=== PATIENT | female | born 1980 | race African-American/Black ===

== ENCOUNTER 2018-01-07 10:35 | Outpatient (CLI) | payer OTHER ==
--- NOTE | 2018-01-07 11:49 | Non Stress Test Report ---
Non Stress Test Datetime Report Generated by CPN: 01/07/2018 11:49 DEMOGRAPHIC EGA NST: 34.5 INDICATION Indication for Study: Ordered by Provider MONITORING Monitor Explained: Monitor Explained; Test Explained; Patient Verbalized Understanding Time on Monitor: 01/07/2018 10:45 Time off Monitor: 01/07/2018 11:35 NST Duration: 50 NST INTERVENTIONS NST Interventions: PO Hydration; Reposition Patient Physician Notified NST: CTresa, CNM BABY A: [id number] BABY A Movement : Present Contraction Frequency : None FHR Baseline : 140 Accelerations : 15X15 Decelerations : None Variability : Moderate 6-25bpm NST Review: Meets Criteria for Reactive NST NST Review and Verified By : ABI Linares Results: Reactive NST REPORT Report Trigger: Send Report
== END 2018-01-07 11:41 | disposition home or self-care (01) ==
LOC: LC 10:35
PROVIDERS: ATTEND Obstetrics & Gynecology
PROC: 4A1HXCZ Monitoring of Products of Conception, Cardiac Rate, External Approach (ICD-10-PCS; principal; 2018-01-07)
DX: Z34.93 Encounter for supervision of normal pregnancy, unspecified, third trimester (principal)
CPT/HCPCS: 59025

== ENCOUNTER 2018-01-14 16:34 | Outpatient (CLI) | payer OTHER ==
--- NOTE | 2018-01-14 17:13 | Non Stress Test Report ---
Non Stress Test Datetime Report Generated by CPN: 01/14/2018 17:13 DEMOGRAPHIC EGA NST: 35.5 INDICATION Indication for Study: Diabetes Mellitus; Ordered by Provider VITAL SIGNS Temperature - NST: 98.0 Pulse - NST: 96 RESP - NST: 16 NBPSYS NST: 116 NBPDIA NST: 65 MONITORING Monitor Explained: Monitor Explained; Test Explained; Patient Verbalized Understanding Time on Monitor: 01/14/2018 16:43 Time off Monitor: 01/14/2018 17:09 NST Duration: 26 NST INTERVENTIONS NST Interventions: PO Hydration; Reposition Patient Physician Notified NST: Dr. Rutherford on unit and viewed strip BABY A: [id number] BABY A Movement : Present Contraction Frequency : 0 FHR Baseline : 130 Accelerations : 15X15 Decelerations : None Variability : Moderate 6-25bpm NST Review: Meets Criteria for Reactive NST NST Review and Verified By : ABI Eden Results: Reactive NST REPORT Report Trigger: Send Report
== END 2018-01-14 17:14 | disposition home or self-care (01) ==
LOC: LC 16:34
PROVIDERS: ATTEND Obstetrics & Gynecology Gynecology
PROC: 4A1HXCZ Monitoring of Products of Conception, Cardiac Rate, External Approach (ICD-10-PCS; principal; 2018-01-14)
DX: O24.419 Gestational diabetes mellitus in pregnancy, unspecified control (principal); O09.523 Supervision of elderly multigravida, third trimester; Z3A.35 35 weeks gestation of pregnancy
CPT/HCPCS: 59025

== ENCOUNTER 2018-01-17 16:27 | Outpatient (CLI) | payer OTHER ==
--- NOTE | 2018-01-17 17:13 | Non Stress Test Report ---
Non Stress Test Datetime Report Generated by CPN: 01/17/2018 17:13 DEMOGRAPHIC EGA NST: 36.1 INDICATION Indication for Study: Diabetes Mellitus; Ordered by Provider MONITORING Monitor Explained: Monitor Explained; Test Explained; Patient Verbalized Understanding Time on Monitor: 01/17/2018 16:42 Time off Monitor: 01/17/2018 17:06 NST Duration: 24 NST INTERVENTIONS NST Interventions: PO Hydration; Reposition Patient Physician Notified NST: Dr. Younger BABY A: [id number] BABY A Movement : Present Contraction Frequency : 0 FHR Baseline : 130 Accelerations : 15X15 Decelerations : None Variability : Moderate 6-25bpm NST Review: Meets Criteria for Reactive NST NST Review and Verified By : ABI Eden Results: Reactive NST REPORT Report Trigger: Send Report
== END 2018-01-17 17:11 | disposition home or self-care (01) ==
LOC: LC 16:27
PROVIDERS: ATTEND Obstetrics & Gynecology
PROC: 4A1HXCZ Monitoring of Products of Conception, Cardiac Rate, External Approach (ICD-10-PCS; principal; 2018-01-17)
DX: Z34.93 Encounter for supervision of normal pregnancy, unspecified, third trimester (principal)
CPT/HCPCS: 59025

== ENCOUNTER 2018-02-05 18:51 | Inpatient (IN) | payer OTHER ==
[2018-02-05] MEDS ORDERED: MAG HYDROX/AL HYDROX/SIMETH SUSP 30 ML UDCUP PO PRN (19:18)
[2018-02-05] MEDS ORDERED: ZOLPIDEM TARTRATE 5 MG TABLET PO PRN (19:18)
[2018-02-05] MEDS ORDERED: DINOPROSTONE 10 MG VAGINAL INSERT.SR PV ONE (19:18)
[2018-02-05] MEDS ORDERED: RINGERS SOLUTION,LACTATED 300 ML IV ONE (19:18)
[2018-02-05] MEDS ORDERED: ACETAMINOPHEN 325 MG TABLET PO PRN (19:18)
[2018-02-05 19:49] LABS: ABSOLUTE EOSINOPHILS # (AUTO) 0.1 10^3/uL (0.0-0.6); ABSOLUTE LYMPHOCYTES (AUTO) 1.5 10^3/uL (0.5-4.7); ABSOLUTE MONOCYTES (AUTO) 0.6 10^3/uL (0.1-1.4); ABSOLUTE NEUT (AUTO) 6.9 10^3/uL (1.7-8.2); BASOPHILS % (AUTO) 0.3 % (0-2); EOSINOPHILS % (AUTO) 1.5 % (0-6); HEMATOCRIT 37.1 % (36.0-47.0); HEMOGLOBIN 12.9 g/dL (12.0-15.5); MEAN CORPUSCULAR HEMOGLOBIN 27.8 pg (27.0-33.4); MEAN CORPUSCULAR HGB CONC 34.9 g/dL (32.0-36.0); MEAN CORPUSCULAR VOLUME 80 fl (80-97); MONOCYTES % (AUTO) 7.1 % (3-13); PLATELET COUNT 191 10^3/uL (150-450); RED BLOOD COUNT 4.65 10^6/uL (3.72-5.28); RED CELL DISTRIBUTION WIDTH 14.5 % (11.5-14.0); SEGMENTED NEUTROPHILS % (AUTO) 75.1 % (42-78); TOTAL CELLS COUNTED % (AUTO) 100 %; WHITE BLOOD COUNT 9.1 10^3/uL (4.0-10.5)
[2018-02-05 19:53] LABS: APPEARANCE,URINE SLIGHTLY-CLOUDY; BILIRUBIN,URINE NEGATIVE (NEGATIVE); COLOR,URINE YELLOW; GLUCOSE, URINE NEGATIVE (NEGATIVE); KETONES,URINE 20 mg/dL (NEGATIVE); LEUKOCYTE ESTERASE,URINE LARGE (NEGATIVE); NITRITE,URINE NEGATIVE (NEGATIVE); PROTEIN,URINE NEGATIVE (NEGATIVE); URINE SPECIFIC GRAVITY 1.016; UROBILINOGEN,URINE NEGATIVE mg/dL (<2.0)
[2018-02-05 20:07] LABS: URINE AMPHETAMINES SCREEN NEGATIVE; URINE BARBITURATES SCREEN NEGATIVE; URINE BENZODIAZEPINES SCREEN NEGATIVE; URINE COCAINE SCREEN NEGATIVE; URINE MARIJUANA (THC) SCREEN NEGATIVE; URINE METHADONE SCREEN NEGATIVE; URINE PHENCYCLIDINE SCREEN NEGATIVE
[2018-02-05] MEDS ORDERED: ACETAMINOPHEN 325 MG TABLET ONE (20:22)
[2018-02-05] MEDS: RINGERS SOLUTION,LACTATED 1,000 ML IV PRN ×2 (21:28→21:29)
[2018-02-05] MEDS ORDERED: DINOPROSTONE 10 MG VAGINAL INSERT.SR ONE (21:37)
--- NOTE | 2018-02-06 11:23 | L&D Progress Notes ---
PROGRESS NOTES Datetime Report Generated by CPN: 02/06/2018 11:22 PROGRESS NOTE Impression: Reassuring Heart Rate Procedures: Sterile Vag Exam Plan: Induction Plan Other: cervical ripening Vital Signs : Reviewed; Within Normal Limits Comment: at 39 wks IOL for GDM. GBS+. S/p cervidil overnight for cervical ripening. Pt did eat breakfast this morning. No complaints. Plan to place a Tejeda's cath and start Routine Pitocin when able to (due to pt census on the unit). Pt plans epidural when in labor. Attending MD is Dr Jean Baptiste VAGINAL EXAM Dilatation: 2 Dilatation: 0 Effacement: 70 Effacement: 0 Station: -2 Station: -2 Contractions: occassional MEMBRANES Pooling: Negative Membranes: Intact Membranes: Intact FETUS A FHR - Baseline: 140 Monitoring: External US Variability: Minimal - Undetectable to <=5bpm Accelerations: 10X10 Decelerations: None : 39.0 Estimated Weight (gm): 4000 Presentation: Vertex SIGNATURE SIGNATURE: [id number];14,[id number];13,[id number] SIGNATURE: [id number];14,[id number] SIGNATURE: 14,[id number] SIGNATURE: 14,[id number] SIGNATURE: 14,[id number] Assignment: Ilsa Jean Baptiste MD Signature: with User ID: [email or web address] : with User ID: [email or web address]
[2018-02-06] MEDS ORDERED: NALBUPHINE HCL INJ 10 MG/1 ML AMPULE INJ ONE (11:24)
[2018-02-06] MEDS ORDERED: NALBUPHINE HCL INJ 10 MG/1 ML AMPULE ONE (11:26)
--- NOTE | 2018-02-06 12:33 | L&D Progress Notes ---
PROGRESS NOTES Datetime Report Generated by CPN: 02/06/2018 12:33 PROGRESS NOTE Impression: Reassuring Heart Rate Procedures- Other: Tejeda's catheter placed for cervical ripening Plan: Continue Present Management; Induction Vital Signs : Reviewed; Within Normal Limits Comment: IOL. Tejeda's catheter placed to continue with cervical ripening. IV Nubain given prior to procedure, pt tolerated well. Will start routine Pitocin when demands of nursing unit will allow. Position changes encouraged VAGINAL EXAM Dilatation: 2 Effacement: 70 Station: -1 Contractions: q2-4 FETUS A FHR - Baseline: 125 Monitoring: External US Variability: Moderate 6-25bpm Accelerations: 15X15 Decelerations: None FHR Category: Category I FETUS C SIGNATURE: [id number];14,[id number];10,[id number] Assignment: Ilsa Jean Baptiste MD Signature: with User ID: [email or web address] : with User ID: [email or web address]
[2018-02-06] MEDS ORDERED: OXYTOCIN/NORMAL SALINE 20 UNIT/1,000 ML RTUINJ IV PRN (13:24)
[2018-02-06] MEDS ORDERED: PENICILLIN G POTASSIUM 5,000,000 UNIT in DEXTROSE 5%-WATER 100 ML IV ONE (13:50)
[2018-02-06] MEDS ORDERED: PENICILLIN G-K 5 MILLION UNIT VIAL ONE ×3 (15:53→23:46)
[2018-02-06] MEDS ORDERED: OXYTOCIN/NORMAL SALINE 0 UNIT/0 ML RTUINJ ONE (15:53)
--- NOTE | 2018-02-06 16:34 | L&D Progress Notes ---
PROGRESS NOTES Datetime Report Generated by CPN: 02/06/2018 16:34 PROGRESS NOTE Impression: Reassuring Heart Rate Plan: Continue Present Management; Induction Plan Other: Pt may eat dinner Vital Signs : Reviewed; Within Normal Limits Comment: IOL, Tejeda's catheter remains in place. Pitocin recently started. Pt remains comfortable. PLan to let pt eat dinner tonight and continue with Tejeda's cath and Pitcoin. Position changes encouraged. VAGINAL EXAM Contractions: occassional occassional Contractions: abd palpates soft MEMBRANES Membranes: Intact FETUS A FHR - Baseline: 130 Monitoring: External US Variability: Moderate 6-25bpm Accelerations: 15X15 Decelerations: None FHR Category: Category I FETUS C SIGNATURE: [id number];14,[id number];13,[id number] Assignment: Ilsa Jean Baptiste MD Signature: with User ID: [email or web address] : with User ID: [email or web address]
[2018-02-06] MEDS ORDERED: MISOPROSTOL 0.2 MG TABLET ONE (19:12)
[2018-02-06] MEDS ORDERED: OXYTOCIN/NORMAL SALINE 20 UNIT/1,000 ML RTUINJ ONE (19:12)
[2018-02-06] MEDS ORDERED: LIDOCAINE 1% INJ-PF (10 MG/ML) 30 ML SDV ONE (19:12)
[2018-02-06] MEDS ORDERED: FENTANYL/BUPIVACAINE/NS/PF 300 MCG/150 ML RTUINJ EPI ONE (19:13)
[2018-02-06] MEDS ORDERED: BUPIVACAINE HCL 0.5 % INJ/PF 30 ML SDV ONE (19:13)
[2018-02-06] MEDS ORDERED: EPHEDRINE SULFATE INJ 50 MG/1 ML AMPULE ONE (19:13)
[2018-02-06] MEDS: PENICILLIN G POTASSIUM 2,500,000 UNIT in DEXTROSE 5%-WATER 50 ML IV SCH (19:57)
[2018-02-06] MEDS: RINGERS SOLUTION,LACTATED 1,000 ML IV PRN (20:43)
--- NOTE | 2018-02-06 21:33 | L&D Progress Notes ---
PROGRESS NOTES Datetime Report Generated by CPN: 02/06/2018 21:33 PROGRESS NOTE Impression: Normal Progression of Labor Procedures: Artificial ROM; Sterile Vag Exam Plan: Continue Present Management; Induction Informed Consent Obtained: Vaginal Delivery; Induction of Labor; Risks, Benefits and Alternatives Discussed Vital Signs : Reviewed Comment: IOL due to GDM at 39wks. Pt now comfortable with epidural. Doing well. cvx 5/75/-2 and AROM performed with head well applied to cervix. Continue with pitocin and anticiapte . VAGINAL EXAM Dilatation: 5 Effacement: 75 Station: -2 Contractions: q 3-4 Dilitation: 5.5 Dilitation: 5.0 Effacement: 75 Effacement: 75 Station: -2 Station: -2 MEMBRANES Amniotic Fluid Color: Clear FETUS A FHR - Baseline: 160 Monitoring: External US Variability: Moderate 6-25bpm Accelerations: 15X15 Decelerations: None FHR Category: Category II FETUS C SIGNATURE: [id number];14,[id number];10,[id number] Signature: with User ID: [email or web address]
[2018-02-07] MEDS: PENICILLIN G POTASSIUM 2,500,000 UNIT in DEXTROSE 5%-WATER 50 ML IV SCH ×3 (00:03→11:19)
[2018-02-07] MEDS: RINGERS SOLUTION,LACTATED 1,000 ML IV PRN (00:06)
[2018-02-07] MEDS ORDERED: ACETAMINOPHEN 325 MG TABLET ONE (03:32)
[2018-02-07] MEDS ORDERED: PENICILLIN G-K 5 MILLION UNIT VIAL ONE (03:57)
[2018-02-07] MEDS ORDERED: OXYTOCIN/NORMAL SALINE 20 UNIT/1,000 ML RTUINJ ONE (08:02)
[2018-02-07] MEDS ORDERED: ACETAMINOPHEN 325 MG TABLET PO PRN (08:48)
[2018-02-07] MEDS ORDERED: MAGNESIUM HYDROXIDE SUSP 30 ML UDCUP PO PRN (08:48)
[2018-02-07] MEDS ORDERED: PROMETHAZINE HCL INJ 25 MG/1 ML VIAL IV PRN (08:48)
[2018-02-07] MEDS ORDERED: ZOLPIDEM TARTRATE 5 MG TABLET PO PRN (08:48)
[2018-02-07] MEDS ORDERED: NA PHOS,M-B/NA PHOS,DI-BA (ADULT) 133 ML ENEMA PR PRN (08:48)
[2018-02-07] MEDS ORDERED: BENZOCAINE/MENTHOL AEROSOL SPRAY 56 ML TOP PRN (08:48)
[2018-02-07] MEDS ORDERED: MEASLES,MUMPS&RUBELLA VACC/PF 0.5 ML VIAL SUBCUT PRN (08:48)
[2018-02-07] MEDS ORDERED: DIBUCAINE 1% OINTMENT 28 GM TP PRN (08:48)
[2018-02-07] MEDS ORDERED: MISOPROSTOL 0.2 MG TABLET PR PRN (08:48)
[2018-02-07] MEDS ORDERED: PSEUDOEPHEDRINE HCL 30 MG TABLET PO PRN (08:48)
[2018-02-07] MEDS ORDERED: OXYTOCIN/NORMAL SALINE 20 UNIT/1,000 ML RTUINJ IV PRN (08:48)
[2018-02-07] MEDS ORDERED: PROMETHAZINE HCL 25 MG TABLET PO PRN (08:48)
[2018-02-07] MEDS ORDERED: PROMETHAZINE HCL 25 MG SUPP.RECT PR PRN (08:48)
[2018-02-07] MEDS ORDERED: ACETAMINOPHEN WITH CODEINE #3 TABLET PO PRN ×2 (08:48)
[2018-02-07] MEDS ORDERED: GLYCERIN/WITCH HAZEL LEAF 1 EACH MED..PAD TP PRN (08:48)
[2018-02-07] MEDS ORDERED: DIPHENHYDRAMINE HCL 25 MG CAPSULE PO PRN (08:48)
[2018-02-07] MEDS ORDERED: DIPH/PERTUSS(ACELL)/TETANUS VAC/PF 0.5 ML SYR (>=10YO) IM PRN (08:48)
--- NOTE | 2018-02-07 09:40 | Delivery Summary ---
Del Sum A-C Datetime Report Generated by CPN: 02/07/2018 09:40 DELIVERY PERSONNEL DELIVERY PERSONNEL: [id number] Delivery Doctor:: Ilsa Jean Baptiste MD Anesthesiologist:: Johny Godinez MD Labor and Delivery Nurse:: Tri Roe RNsourcing consultant Nurse:: Gale Ford RN Student Observers:: DARNELL Hardwick RN Student Cello Teacher/ARIA: Pallavi Lazo CNA II Additional Personnel: : Chaya Armijo RN MATERNAL INFORMATION Delivery Anesthesia: Epidural Medications After Delivery: Pitocin Drip 20 Units/1000ml NSS; Cytotec 1000mcg Per Rectum/Vagina Maternal Complications: None Provider Comments: VFI delivered in SULEIMAN presentation. Loose nuchal cord reduced. Left anterior shoulder with some difficulty delivery due to poor maternal effort and closing of legs. Once legs placed in Latisha and effort restored then anterior shoulder delivered easily. Head and shoulders delivered then hips and buttocks then delayed delivery due to maternal effort. Anterior shoulder - left shoulder with some possible crepitus (NICU asked to eval). Placenta delivered intact spontaneously. FF at U after pitocin and cytotec. Right labial lacration repaired in usual fashion. Good hemostasis. Reviewed delivery with mother and partner that if GDM next and if baby is the same size or larger that would recommend section. Amount of amniotic fluid consistent with polyhydramnios. mother and baby stable upon provider leaving the room LABOR SUMMARY EDC: 02/13/2018 00:00 No. Babies in Womb: 1 Attempted: No Labor Anesthesia: Epidural LABOR INFORMATION Reason for Induction: Gestational Hypertension; Maternal Diabetes Onset of Labor: 02/06/2018 21:25 Complete Dilatation: 02/07/2018 06:26 Cervical Ripening Agents: Cervidil; Wallace Balloon Oxytocin: Induction Group B Beta Strep: positive Antibiotics # of Doses: 4 Antibiotics Time of Last Dose: 0400 Name of Antibiotic Given: PCN Steroids Given: None Reason Steroids Not Administered: Not Applicable MEMBRANES Membranes Rupture Method: Spontaneous Rupture of Membranes: 02/06/2018 21:25 Length of Rupture (hr): 10.37 Amniotic Fluid Color: Clear Amniotic Fluid Amount: Small Amniotic Fluid Odor: Normal STAGES OF LABOR Stage 1 hr: 9 Stage 1 min: 1 Stage 2 hr: 1 Stage 2 min: 21 Stage 3 hr: 0 Stage 3 min: 5 Total Time in Labor hr: 10 Total Time in Labor min: 27 VAGINAL DELIVERY Episiotomy: None Laceration #1: Vaginal Laceration Extension #1: N/A Laceration Repair: Yes Laceration Repair Note: right labial laceration repaired with good hemostasis Sponge Count Correct: Yes Sharps Count Correct: Yes BABY A INFORMATION Infant Delivery Date/Time: 02/07/2018 07:47 Method of Delivery: Vaginal Born in Route : No : N/A Forceps: N/A Vacuum Extraction: N/A Shoulder Dystocia : No PRESENTATION/POSITION BABY A Presentation: Cephalic Cephalic Presentation: Vertex Vertex Position: Left Occipital Anterior Breech Presentation: N/A PLACENTA INFORMATION BABY A Placenta Delivery Time : 02/07/2018 07:52 Placenta Method of Delivery: Spontaneous Placenta Status: Delivered SCORES BABY A Heart Rate 1 min: >100 bpm Resp Effort 1 min: Slow, Irregular Reflex Irritability 1 min: Cough or Sneeze or Pulls Away Muscle Tone 1 min: Some Flexion of Extremities Color 1 min: Body [place], Extremities Blue Resuscitation Effort 1 min: Tactile Stimulation; PPV/NCPAP SCORE 1 MIN: 7 Heart Rate 5 min: >100 bpm Resp Effort 5 min: Good Cry Reflex Irritability 5 min: Cough or Sneeze or Pulls Away Muscle Tone 5 min: Active Motion Color 5 min: Body [place], Extremities Blue Resuscitation Effort 5 min: N/A SCORE 5 MIN: 9 INFANT INFORMATION BABY A Gestational Age at Delivery: 39.1 Gestational Status: Full Term- 39- 40.6 Weeks Outcome : Liveborn Infant Condition : Stable Sex: Female IDENTIFICATION BABY A Infant Verification Date/Time: 02/07/2018 08:08 ID Band Number: [id number] Mother's Name Verified: Yes Infant RN Verifying : B Baidy RN Additional Verifying Personnel: S Brown SUPPORT COORDINATOR WEIGHT/LENGTH BABY A Birthweight (gm): 3560 Infant Weight (lb): 7 Infant Weight (oz): 14 Length (in): 20.00 Infant Length (cm): 50.80 CORD INFORMATION BABY A No. Cord Vessels: 3 Nuchal Cord : Around Neck x1, Tight Cord Blood Taken: Yes-For Eval (Mom's Blood Type - or O+) Suction: None; Mouth ASSESSMENT BABY A Complications: None Physical Findings at Delivery: Molding of the Head Respirations: Appears Normal Skin to Skin: Yes Practicing Md Anesthesiologist/ALS Called : No Care By: Zach Ford, RN Transferred To: Remains with Mother BABY B INFORMATION : N/A SIGNATURES Signature: with User ID: [email or web address]
[2018-02-07] MEDS: FAMOTIDINE 20 MG TABLET PO SCH ×2 (10:52→21:44)
[2018-02-07] MEDS: FERROUS SULFATE 325 MG TABLET PO SCH ×2 (10:52→17:21)
[2018-02-07] MEDS: DOCUSATE SODIUM 100 MG CAPSULE PO SCH ×2 (10:52→17:21)
[2018-02-07] MEDS: PRENATAL VITAMIN W DHA CAPSULE PO SCH (10:52)
[2018-02-07] MEDS: SENNOSIDES/DOCUSATE 8.6-50 MG 1 EACH TABLET PO SCH (10:52)
[2018-02-07] MEDS: IBUPROFEN 800 MG TABLET PO SCH ×2 (13:11→21:44)
[2018-02-08] MEDS: IBUPROFEN 800 MG TABLET PO SCH ×3 (06:28→21:51)
[2018-02-08 07:21] LABS: HEMATOCRIT 31.9 % (36.0-47.0); MEAN CORPUSCULAR HEMOGLOBIN 27.3 pg (27.0-33.4); MEAN CORPUSCULAR HGB CONC 33.9 g/dL (32.0-36.0); MEAN CORPUSCULAR VOLUME 81 fl (80-97); PLATELET COUNT 164 10^3/uL (150-450); RED BLOOD COUNT 3.96 10^6/uL (3.72-5.28); RED CELL DISTRIBUTION WIDTH 14.8 % (11.5-14.0); WHITE BLOOD COUNT 11.5 10^3/uL (4.0-10.5)
[2018-02-08 07:49] LABS: HEMOGLOBIN 10.8 g/dL (12.0-15.5)
--- NOTE | 2018-02-08 09:15 | PDOC PROGRESS REPORT ---
Subjective-OB Progress Note for:: 02/08/18 Physical Exam (OB) Vital Signs: Temp Pulse Resp BP Pulse Ox 97.9 F 92 15 129/75 H 99 02/08/18 08:21 02/08/18 08:21 02/08/18 08:21 02/08/18 08:21 02/08/18 08:21 Intake & Output 02/07/18 02/08/18 02/09/18 06:59 06:59 06:59 Intake Total 473 2150 Balance 473 2150 Weight 110.677 kg - General General Appearance: Alert - PIH/Pre-Eclampsia Clonus: Negative Headache: Absent Epigastric Pain: No Visual Changes: No - Lochia Lochia Amount: Scant < 10 ml Lochia Color: Rubra/Red - Abdomen Description: Soft Hernia Present: No Bowel Sounds: Normoactive Flatus Presence: Present Fundal Description: Firm, Midline Fundal Height: u/u - u/2 - Respiratory Breath sounds: Clear Objective-Diagnostic Laboratory: 02/08/18 06:48 02/08/18 06:48 WBC 11.5 H RBC 3.96 Hgb 10.8 L D Hct 31.9 L MCV 81 MCH 27.3 MCHC 33.9 RDW 14.8 H Plt Count 164 Assessment and Plan(PN) - Assessment and Plan (1) Gestational diabetes mellitus (GDM) controlled on oral hypoglycemic drug Is this a current diagnosis for this admission?: Yes (2) Gestational hypertension Is this a current diagnosis for this admission?: Yes (3) Obesity Is this a current diagnosis for this admission?: Yes (4) Obstetric labial laceration, delivered, current hospitalization Is this a current diagnosis for this admission?: Yes (5) Vaginal delivery Is this a current diagnosis for this admission?: Yes - Time Spent with Patient Time with patient: Less than 15 minutes - Disposition Anticipated Discharge: Home Within: within 24 hours
[2018-02-08] MEDS: DOCUSATE SODIUM 100 MG CAPSULE PO SCH ×2 (10:07→18:26)
[2018-02-08] MEDS: SENNOSIDES/DOCUSATE 8.6-50 MG 1 EACH TABLET PO SCH (10:08)
[2018-02-08] MEDS: FERROUS SULFATE 325 MG TABLET PO SCH ×2 (10:08→18:26)
[2018-02-08] MEDS: PRENATAL VITAMIN W DHA CAPSULE PO SCH (10:08)
[2018-02-08] MEDS: FAMOTIDINE 20 MG TABLET PO SCH ×2 (10:08→21:55)
[2018-02-09] MEDS: IBUPROFEN 800 MG TABLET PO SCH (05:47)
[2018-02-09 08:28] VITALS: BP 131/75
--- NOTE | 2018-02-09 09:21 | PDOC DISCHARGE SUMMARY ---
Final Diagnosis Discharge Date: 02/09/18 - Final Diagnosis (1) Gestational diabetes mellitus (GDM) controlled on oral hypoglycemic drug Is this a current diagnosis for this admission?: Yes (2) Gestational hypertension Is this a current diagnosis for this admission?: Yes (3) Obesity Is this a current diagnosis for this admission?: Yes (4) Obstetric labial laceration, delivered, current hospitalization Is this a current diagnosis for this admission?: Yes (5) Vaginal delivery Is this a current diagnosis for this admission?: Yes Discharge Data - Discharge Medication Home Medications: Metformin HCl 500 mg PO DAILY 01/07/18 No122/Iron/Folic Acid [ Multi Tablet] 1 each PO DAILY 01/07/18 Reason(s) for Admission: Induction of Labor, PIH, Gestional Diabetes, Group B Strep Positive Procedures: NST Intrapartum Procedure(s): Spontaneous Vaginal Delivery Complication(s): Laceration-Labial Laceration-Degree: 1st - Diagnosis Test Laboratory: Temp Pulse Resp BP Pulse Ox 98.7 F 85 18 131/75 H 99 02/09/18 07:36 02/09/18 07:36 02/09/18 07:36 02/09/18 07:36 02/09/18 07:36 02/05/18 02/05/18 02/08/18 19:25 19:37 06:48 RBC 4.65 3.96 Hgb 12.9 10.8 L D Hct 37.1 31.9 L Urine Opiates Screen NEGATIVE - Discharge information/Instructions Discharge Activity: Balance Activity w/Rest, Pelvic Rest Discharge Diet: Regular Disposition: HOME, SELF-CARE Follow up with: [facility] in: 3, 4, Weeks
== END 2018-02-09 13:16 | disposition home or self-care (01) | DRG 807 ==
LOC: LR 18:51 → 2S 02-07 09:56
PROVIDERS: ADMIT Obstetrics & Gynecology; ATTEND Obstetrics & Gynecology
PROC: 4A1HXCZ Monitoring of Products of Conception, Cardiac Rate, External Approach (ICD-10-PCS; 2018-02-05)
PROC: 3E0P7VZ Introduction of Hormone into Female Reproductive, Via Natural or Artificial Opening (ICD-10-PCS; 2018-02-06)
PROC: 3E033VJ Introduction of Other Hormone into Peripheral Vein, Percutaneous Approach (ICD-10-PCS; 2018-02-06)
PROC: 10E0XZZ Delivery of Products of Conception, External Approach (ICD-10-PCS; principal; 2018-02-07)
PROC: 0HQ9XZZ Repair Perineum Skin, External Approach (ICD-10-PCS; 2018-02-07)
DX: O24.425 Gestational diabetes mellitus in childbirth, controlled by oral hypoglycemic drugs (principal); Z37.0 Single live birth; O13.4 Gestational [pregnancy-induced] hypertension without significant proteinuria, complicating childbirth; O99.214 Obesity complicating childbirth; O70.0 First degree perineal laceration during delivery; O99.824 Streptococcus B carrier state complicating childbirth; O69.1XX0 Labor and delivery complicated by cord around neck, with compression, not applicable or unspecified; O40.3XX0 Polyhydramnios, third trimester, not applicable or unspecified; Z3A.39 39 weeks gestation of pregnancy
CPT/HCPCS: 36415; 80307; 81005; 85025; 85027; 86592; 86850; 86900; 86901; 88307; 99465; J2300; J2540; J2590; J3010; J3490

== ENCOUNTER 2018-06-27 08:45 | Day surgery (SDC) | payer SELFPAY ==
[2018-06-27 09:50] LABS: HEMATOCRIT 40.1 % (36.0-47.0); HEMOGLOBIN 13.7 g/dL (12.0-15.5); MEAN CORPUSCULAR HGB CONC 34.3 g/dL (32.0-36.0); MEAN CORPUSCULAR VOLUME 79 fl (80-97); PLATELET COUNT 243 10^3/uL (150-450); RED CELL DISTRIBUTION WIDTH 14.3 % (11.5-14.0); WHITE BLOOD COUNT 4.9 10^3/uL (4.0-10.5)
[2018-06-27 09:55] LABS: APPEARANCE,URINE SLIGHTLY-CLOUDY; BILIRUBIN,URINE NEGATIVE (NEGATIVE); COLOR,URINE YELLOW; GLUCOSE, URINE NEGATIVE (NEGATIVE); KETONES,URINE NEGATIVE (NEGATIVE); LEUKOCYTE ESTERASE,URINE NEGATIVE (NEGATIVE); NITRITE,URINE NEGATIVE (NEGATIVE); PROTEIN,URINE NEGATIVE (NEGATIVE); URINE SPECIFIC GRAVITY 1.017; UROBILINOGEN,URINE NEGATIVE mg/dL (<2.0)
[2018-06-27] MEDS ORDERED: MIDAZOLAM 2 MG/2 ML INJ ONE ×2 (10:14→10:24)
[2018-06-27] MEDS ORDERED: PROPOFOL INJ 200 MG/20 ML VIAL IV ONE (10:14)
[2018-06-27] MEDS ORDERED: FENTANYL CITRATE INJ/PF 100 MCG/2 ML AMPUL ONE (10:14)
[2018-06-27] MEDS ORDERED: SCOPOLAMINE HYDROBROMIDE 1.5 MG PATCH.TD72 ONE (10:24)
[2018-06-27] MEDS ORDERED: FAMOTIDINE INJ/PF 20 MG/2 ML SDV IV ONE (10:25)
[2018-06-27] MEDS ORDERED: LIDOCAINE 1%/EPINEPHRINE INJ 20 ML VIAL ONE (11:28)
[2018-06-27] MEDS ORDERED: MEPERIDINE HCL/PF INJ 25 MG/1 ML DISP.SYRIN IV PRN (11:53)
[2018-06-27] MEDS ORDERED: DIPHENHYDRAMINE HCL 50 MG/ML VIAL IV PRN (11:53)
[2018-06-27] MEDS ORDERED: PROMETHAZINE HCL INJ 25 MG/1 ML VIAL IV PRN (11:53)
[2018-06-27] MEDS ORDERED: ONDANSETRON HCL INJ/PF 4 MG/2 ML SDV IV PRN (11:53)
[2018-06-27] MEDS ORDERED: MORPHINE SULFATE 10 MG/ML INJ IV PRN (11:53)
[2018-06-27] MEDS ORDERED: FENTANYL CITRATE INJ/PF 100 MCG/2 ML AMPUL IV PRN ×3 (11:53)
[2018-06-27] MEDS ORDERED: OXYCODONE-ACETAMINOPHEN 5-325 MG TABLET PO PRN ×4 (11:53→12:27)
[2018-06-27] MEDS ORDERED: IBUPROFEN 800 MG TABLET PO PRN (12:26)
[2018-06-27] MEDS ORDERED: MORPHINE SULFATE 10 MG/ML INJ IM PRN (12:26)
[2018-06-27] MEDS ORDERED: RINGERS SOLUTION,LACTATED 1,000 ML IV PRN (12:27)
[2018-06-27] MEDS ORDERED: ONDANSETRON HCL INJ/PF 4 MG/2 ML SDV ONE (12:29)
--- NOTE | 2018-06-27 13:24 | OPERATIVE REPORT E ---
Operative Report NAME: MAHAMED MAN : 1980 AGE: 38Y DATE OF SURGERY: 06/27/2018 ROOM: PREOPERATIVE DIAGNOSIS: JAIDEN 2 to 3 and abnormal Pap smear. POSTOPERATIVE DIAGNOSIS: JAIDEN 2 to 3 and abnormal Pap smear. OPERATION: Cold knife cone. SURGEON: RIANNA MACIAS M.D. ANESTHESIA: Jody العراقي M.D. with LMAC. FINDINGS: Normal-appearing cervix with no visible lesions. COMPLICATIONS: None. ESTIMATED BLOOD LOSS: 10 mL. SPECIMENS REMOVED: Cold knife conization marked at 12 o'clock. PROCEDURE IN DETAIL: The patient was taken to the operating room, prepared, and draped in a normal sterile fashion in the dorsal lithotomy position. Under sterile conditions in-and-out cath was performed of approximately 50 mL of clear urine. A sterile speculum was placed in the vagina. The cervix was prepped with Betadine and grasped on the anterior lip with a single-tooth tenaculum. Two stay sutures were placed at 3 and 9 o'clock using 0-Vicryl on a UR6 needle and marked with hemostats. The cervix was then injected with approximately 2.5 mL of lidocaine in 4 different spots for a total of 10 mL. The Kallie blade was then used to obtain the specimen starting at the 12 o'clock position and circumferentially excising using the [place] blade in a normal fashion until the specimen was able to be amputated, which was performed using Bishop scissors. An 11 blade was then used to take a slightly deeper specimen, and this was removed using Allis clamps. This was done secondary to the patient's high risk of invasive dysplasia or carcinoma. The defect was then copiously cauterized using a ball cautery until good hemostasis was obtained. The defect was then packed with Gelfoam soaked in Monsel's and this was tied into the cervix in place into the defect using the 2 stay sutures which were then trimmed. The instruments were then removed. Sponge, lap and needle counts were correct x2, and the patient was taken to recovery in stable condition. DICTATING PHYSICIAN: RIANNA MACIAS M.D. [id number] PHY#: [id number] ID: [id number] JOB#: [id number] ACCT: [id number] cc:RIANNA MACIAS M.D. >
[2018-06-27 15:37] VITALS: BP 134/89
== END 2018-06-27 14:35 | disposition home or self-care (01) ==
LOC: OROUT 08:45
PROVIDERS: ATTEND Obstetrics & Gynecology
DX: D06.0 Carcinoma in situ of endocervix (principal); E66.9 Obesity, unspecified; Z68.41 Body mass index [BMI] 40.0-44.9, adult; Z01.818 Encounter for other preprocedural examination
CPT/HCPCS: 57520; 36415; 85027; 81025; 81001; 88307 ×2; J2250; J3010; J3490; J2405; J2704; S0028; 940